=== PATIENT | female | born 1955 | race Two or more races ===

== ENCOUNTER 2021-06-09 15:02 | Inpatient (IN) | payer MEDICARE, OTHER ==
[~2021-06-09] VITALS: Ht 160 cm; Wt 69.4 kg
[2021-06-09 16:50] LABS: Albumin 4.1 g/dL (3.4-5.0); Calcium 9.8 mg/dL (8.5-10.1); Potassium 4.8 mmol/L (3.5-5.1)
[2021-06-09 16:55] LABS: BUN/Creatinine Ratio 18.9; Bilirubin, Total 0.5 mg/dL (0.2-1.0); Total Protein 8.2 g/dL (6.4-8.2)
[2021-06-09 16:59] LABS: Basophils # (auto) 0.1 10 ^3/uL (0-0.2); Basophils % (auto) 0.8 % (0.0-2.0); Eosinophils # (auto) 0.1 10 ^3/uL (0-0.8); Eosinophils % (auto) 1.2 % (0.0-7.0); Hematocrit 40.9 % (36.0-46.0); Hemoglobin 14.1 g/dL (12.2-16.2); Lymphocytes # (auto) 2.5 10 ^3/uL (0.4-5.4); Lymphocytes % (auto) 24.1 % (10.0-50.0); Mean Corpuscular Hemoglobin 29.6 pg (28.0-32.0); Mean Corpuscular Hgb Conc. 34.5 g/dL (32.0-36.0); Mean Corpuscular Volume 85.8 fL (80.0-100.0); Monocytes # (auto) 0.4 10 ^3/uL (0-1.3); Neutrophils # (auto) 7.1 10 ^3/uL (1.6-8.6); Neutrophils % (auto) 69.9 % (37.0-80.0); Red Blood Cells 4.76 10^6/uL (4.0-5.20); Red Cell Distribution Width 12.6 % (11.8-14.3); White Blood Cell 10.2 10^3/uL (4.4-10.8)
[2021-06-09] MEDS ORDERED: SODIUM CHLORIDE 0.9% 500 ML IV ONE (17:45)
[2021-06-09] MEDS ORDERED: CLINDAMYCIN 600MG IV 50 ML IV ONE (20:45)
[2021-06-09] MEDS ORDERED: HYDROcodone-ACET 10/325MG TAB PO ONE (20:45)
[2021-06-09] MEDS ORDERED: DEXTROSE (50%) 50ML SYRG IV PRN (22:00)
[2021-06-09] MEDS ORDERED: TEMAZEPAM 15 MG CAP PO PRN (22:00)
[2021-06-09] MEDS ORDERED: ONDANSETRON HCL 4 MG/2 ML VIAL IV PRN (22:00)
[2021-06-09] MEDS ORDERED: cefTRIAXone 1GM/50ML D5W 50 ML IV ONE (22:00)
[2021-06-09] MEDS ORDERED: ACETAMINOPHEN 325 MG TAB PO PRN (22:00)
[2021-06-09] MEDS: ACCU-CHEK COMFORT CURVE STRIP VI SCH (23:30)
[2021-06-09] MEDS: InsuLIN REG 1unit/0.01ml Soln (100units/ml) SC SCH (23:36)
[2021-06-10] VITALS (9 sets, daily range): BP systolic 132–162; BP diastolic 69–88
[2021-06-10 00:24] LABS: Urine Bacteria FEW /hpf (None Seen); Urine Blood 3+ /uL (Negative); Urine Hyaline Cast FEW /lpf (0 - 2); Urine Mucus FEW (None Seen); Urine Specific Gravity 1.022 (1.001-1.035); Urine WBC 10 /hpf (0 - 5)
[2021-06-10] MEDS ORDERED: METF-370 PO (03:42)
[2021-06-10] MEDS ORDERED: ENAL2.5T7 PO (03:50)
[2021-06-10] MEDS ORDERED: RISE1TAB8 PO (03:50)
[2021-06-10] MEDS ORDERED: SEMA2INJ SC (03:50)
[2021-06-10] MEDS ORDERED: EMPA1TAB3 PO (03:50)
[2021-06-10] MEDS ORDERED: CHOL20007 OR (03:50)
[2021-06-10] MEDS ORDERED: GABA100C9 PO (03:50)
[2021-06-10] MEDS: HYDROcodone-ACET 5/325MG TAB PO PRN ×2 (04:44→10:28)
[2021-06-10 06:08] LABS: Basophils # (auto) 0.1 10 ^3/uL (0-0.2); Basophils % (auto) 0.8 % (0.0-2.0); Eosinophils # (auto) 0.2 10 ^3/uL (0-0.8); Eosinophils % (auto) 2.1 % (0.0-7.0); Hematocrit 35.5 % (36.0-46.0); Hemoglobin 12.6 g/dL (12.2-16.2); Lymphocytes # (auto) 3.4 10 ^3/uL (0.4-5.4); Lymphocytes % (auto) 40.3 % (10.0-50.0); Mean Corpuscular Hemoglobin 30.4 pg (28.0-32.0); Mean Corpuscular Hgb Conc. 35.6 g/dL (32.0-36.0); Mean Corpuscular Volume 85.2 fL (80.0-100.0); Monocytes # (auto) 0.6 10 ^3/uL (0-1.3); Monocytes % (auto) 6.5 % (0.0-12.0); Neutrophils # (auto) 4.3 10 ^3/uL (1.6-8.6); Neutrophils % (auto) 50.3 % (37.0-80.0); Red Blood Cells 4.16 10^6/uL (4.0-5.20); Red Cell Distribution Width 12.7 % (11.8-14.3); White Blood Cell 8.5 10^3/uL (4.4-10.8)
[2021-06-10] MEDS: CLINDAMYCIN 600MG IV 50 ML IV SCH ×3 (06:15→22:07)
[2021-06-10 06:34] LABS: Potassium 4.1 mmol/L (3.5-5.1)
[2021-06-10 06:42] LABS: Albumin 3.3 g/dL (3.4-5.0); BUN/Creatinine Ratio 24.1; Bilirubin, Total 0.4 mg/dL (0.2-1.0); Total Protein 6.3 g/dL (6.4-8.2)
[2021-06-10] MEDS: ACCU-CHEK COMFORT CURVE STRIP VI SCH ×4 (07:06→22:00)
[2021-06-10] MEDS: InsuLIN REG 1unit/0.01ml Soln (100units/ml) SC SCH ×4 (07:06→22:37)
[2021-06-10] MEDS ORDERED: PANTOPRAZOLE 40 MG TAB PO SCH (10:00)
[2021-06-10] MEDS: cefTRIAXone 1GM/50ML D5W 50 ML IV SCH (10:26)
[2021-06-11 05:25] VITALS: BP 147/88
[2021-06-11] MEDS: CLINDAMYCIN 600MG IV 50 ML IV SCH ×3 (05:56→22:03)
[2021-06-11] MEDS: ACCU-CHEK COMFORT CURVE STRIP VI SCH ×4 (06:58→22:03)
[2021-06-11] MEDS: InsuLIN REG 1unit/0.01ml Soln (100units/ml) SC SCH ×4 (07:07→22:12)
[2021-06-11 09:00] VITALS: BP 147/83
[2021-06-11] MEDS: cefTRIAXone 1GM/50ML D5W 50 ML IV SCH (09:40)
[2021-06-11 13:00] VITALS: BP 149/84
[2021-06-11 17:26] VITALS: BP 144/80
[2021-06-11 22:00] VITALS: BP 157/86
[2021-06-12] MEDS: HYDROcodone-ACET 5/325MG TAB PO PRN (03:13)
[2021-06-12 05:00] VITALS: BP 144/76
[2021-06-12] MEDS: CLINDAMYCIN 600MG IV 50 ML IV SCH ×2 (05:57→14:25)
[2021-06-12] MEDS: ACCU-CHEK COMFORT CURVE STRIP VI SCH ×2 (06:03→11:41)
[2021-06-12] MEDS: InsuLIN REG 1unit/0.01ml Soln (100units/ml) SC SCH ×2 (06:09→11:30)
[2021-06-12 08:00] VITALS: BP 143/73
[2021-06-12 09:00] VITALS: BP 143/73
[2021-06-12] MEDS: cefTRIAXone 1GM/50ML D5W 50 ML IV SCH (09:00)
[2021-06-12] MEDS ORDERED: CEPH500C PO (11:09)
[2021-06-12] MEDS ORDERED: CLIN300C8 PO (11:09)
[2021-06-12 13:00] VITALS: BP 139/96
[2021-06-12 14:06] VITALS: BP 139/96
== END 2021-06-12 16:30 | disposition home or self-care (01) | DRG 603 ==
LOC: ER 15:02 → OVERFLOW 21:51 → WEST WING 06-10 01:07
PROVIDERS: ADMIT Nurse Practitioner; ATTEND Family Medicine
DX: L03.213 Periorbital cellulitis (principal); I10 Essential (primary) hypertension; T63.301A Toxic effect of unspecified spider venom, accidental (unintentional), initial encounter; E11.65 Type 2 diabetes mellitus with hyperglycemia; E78.5 Hyperlipidemia, unspecified; Z20.822 Contact with and (suspected) exposure to COVID-19; A49.01 Methicillin susceptible Staphylococcus aureus infection, unspecified site; Z87.442 Personal history of urinary calculi; Y92.89 Other specified places as the place of occurrence of the external cause
CPT/HCPCS: 36415; 70486; 80053; 81001; 82962; 83605; 84484; 85025; 87040; 87077; 87186; 87205; 87426; 96361; 96365; 96367; G0378; J0696; J1815; J3490